=== PATIENT | female | born 1960 ===

== ENCOUNTER 2019-05-22 08:05 | Outpatient (CLI) | payer MEDICARE ==
[2019-05-22] MEDS ORDERED: LIDOCAINE (4%) 40 MG/ML TOPICAL SOLN 50 ML BOTTLE TP ONE (09:00)
== END 2019-05-22 08:06 | disposition home or self-care (01) ==
LOC: WOUND 08:05
PROVIDERS: ATTEND Surgery
DX: L89.322 Pressure ulcer of left buttock, stage 2 (principal); E03.9 Hypothyroidism, unspecified; M19.90 Unspecified osteoarthritis, unspecified site; K58.9 Irritable bowel syndrome, unspecified; F84.0 Autistic disorder
CPT/HCPCS: 99205; G0463

== ENCOUNTER 2019-06-05 10:01 | Outpatient (CLI) | payer MEDICARE | END 2019-06-05 10:02 | disposition home or self-care (01) | LOC: WOUND 10:01 | PROVIDERS: ATTEND Surgery | DX: L89.322 Pressure ulcer of left buttock, stage 2 (principal); E03.9 Hypothyroidism, unspecified; M19.90 Unspecified osteoarthritis, unspecified site | CPT/HCPCS: 99213; G0463 ==